=== PATIENT | male | born 1965 | race Caucasian/White ===

== ENCOUNTER 2016-12-17 02:19 | Emergency (ER) | payer OTHER ==
[2016-12-17 03:27] LABS: HEMOGLOBIN 14.7 gm/dl (14.0-17.5); RED BLOOD COUNT 5.5 M/UL (4.20-5.50); WHITE BLOOD COUNT 8.4 K/UL (4.5-11.0)
[2016-12-17 03:44] LABS: BUN/CREATININE RATIO 23 (0-10)
== END 2016-12-17 04:49 | disposition home or self-care (01) ==
LOC: ER1 02:19
PROVIDERS: Physician Assistant
DX: J40 Bronchitis, not specified as acute or chronic (principal); I10 Essential (primary) hypertension; E11.9 Type 2 diabetes mellitus without complications; Z79.84 Long term (current) use of oral hypoglycemic drugs; Z79.899 Other long term (current) drug therapy
CPT/HCPCS: 36415; 71020; 80053; 85025; 85379; 93005; 99283